=== PATIENT | male | born 1975 | race Two or more races ===

== ENCOUNTER 2017-11-30 07:08 | Emergency (ER) | payer SELFPAY ==
[~2017-11-30] VITALS: Ht 170.2 cm; Wt 90.7 kg
[2017-11-30 07:13] VITALS: BP 127/86
[2017-11-30 08:10] LABS: BASOPHIL % 0.3 % (0-2); PLATELET COUNT 176 x10^3mcL (130-400); RED CELL DISTRIBUTION WIDTH 13.7 % (11.5-14.5)
[2017-11-30 08:28] LABS: CARBON DIOXIDE 28.1 mmol/L (21-32); CHLORIDE SERUM 105 mmol/L (98-107); CREATININE SERUM 0.7 mg/dL (0.7-1.3); GFR1 > 60 mL/min; GLUCOSE SERUM 100 mg/dL (74-106); POTASSIUM SERUM 3.4 mmol/L (3.5-5.1); SODIUM SERUM 142 mmol/L (136-145)
[2017-11-30 08:31] LABS: ALBUMIN 3.4 g/dL (3.4-5.0); ALKALINE PHOSPHATASE 79 U/L (46-116); ALT/SGPT 43 U/L (16-63); AST/SGOT 31 U/L (15-37); BILIRUBIN TOTAL 0.41 mg/dL (0.20-1.00); TOTAL PROTEIN, SERUM 6.9 g/dL (6.4-8.2)
== END 2017-11-30 09:13 | disposition home or self-care (01) ==
LOC: ED 07:08
PROVIDERS: Emergency Medicine
DX: R04.0 Epistaxis (principal)
CPT/HCPCS: 36415; 83880

== ENCOUNTER 2017-12-02 10:16 | Emergency (ER) | payer SELFPAY ==
[~2017-12-02] VITALS: Ht 170.2 cm; Wt 92.3 kg
[2017-12-02 11:52] VITALS: BP 128/88
== END 2017-12-02 11:52 | disposition home or self-care (01) ==
LOC: ED 10:16
DX: Z48.00 Encounter for change or removal of nonsurgical wound dressing (principal)